=== PATIENT | female | born 1960 | race African-American/Black ===

== ENCOUNTER 2016-11-19 06:59 | Day surgery (SDC) | payer MEDICARE ==
[~2016-11-19] VITALS: Ht 157.5 cm; Wt 81.6 kg
[~2016-11-19 06:59] MED LIST: ASPIRIN EC81 M1 PO; CYCLOBENZAPRINE10 MG PO; DILT-XR240 MG PO; HCTZ25 MG PO; K-DUR20 MEQ PO; LEXAPRO20 MG PO; PREDNISONE5 MG PO; VENTOLIN HFA18 GM INH; VITAMIN D31000 UNI2 PO; ZOCOR20 MG PO
[2016-11-19 08:36] VITALS: BP 134/69; Ht 157.5 cm; Wt 81.6 kg
[2016-11-19 09:18] LABS: CALC OSMOLALITY 287 mosm/kg (275-300); CALCIUM 9.8 mg/dL (8.5-10.1); CARBON DIOXIDE 32.5 mmol/L (21.0-32.0); CHLORIDE - SERUM 105 mmol/L (98-107); CREATININE - SERUM 0.7 mg/dL (0.6-1.3); GLUCOSE 100 mg/dL (74-106); POTASSIUM - SERUM 4.7 mmol/L (3.5-5.1); SODIUM 144 mmol/L (136-145); UREA NITROGEN 14 mg/dL (7-18); eGFR NON AFRICAN AMERICAN > 90 mL/min (90-120)
[2016-11-19 09:41] LABS: HEMATOCRIT 36.1 % (36.0-48.0); HEMOGLOBIN 10.8 g/dL (12-16); MCH 22.5 pg (26.0-34.0); MCHC 29.9 g/dL (31.0-37.0); MCV 75.1 fL (80.0-100.0); MEAN PLATELET VOLUME 10.3 fL (7.4-10.4); RBC 4.81 10x6/uL (4.00-5.40); RDW 17.1 % (11.5-14.5); WBC 5.3 10x3/uL (4.8-10.8)
--- NOTE | 2016-11-19 10:18 | HP ---
PATIENT: ESTEFANI CALDERÓN [facility] MEDICAL RECORD: [id number] ACCOUNT: [id number] LOCATION:[facility] : 60 ADMISSION DATE: 11/19/16 HISTORY AND PHYSICAL EXAMINATION Preoperative History and Physical HISTORY OF PRESENT ILLNESS: Estefani is a 56-year-old female who presented with left eustachian tube dysfunction and serous otitis media. Her symptoms have persisted and she has some inflammatory changes in the nasopharynx, they are atypical as well. She is being admitted for left myringotomy and tube and direct laryngoscopy and biopsy of the nasopharynx. PAST MEDICAL HISTORY: Include hypertension, coronary artery disease and reactive airway disease. PAST SURGICAL HISTORY: Includes . CURRENT MEDICATIONS: Diltiazem, cyclobenzaprine, hydrochlorothiazide, prednisone, meclizine, simvastatin, Ventolin and oxygen. ALLERGIES: No known drug allergies. PHYSICAL EXAMINATION: GENERAL: She is healthy-appearing, developmentally normal. FACE: Normal, symmetric, no lesions. EYES: Sclerae and conjunctivae are normal. EARS: Right ear is normal. Left ear has effusion. NOSE: No mass, polyps or drainage. ORAL CAVITY AND OROPHARYNX: Tongue protrudes in the midline. Palate and pharynx are normal. NECK: No masses, no adenopathy. CHEST: Clear. CARDIOVASCULAR: Regular rate and rhythm. No murmur. EXTREMITIES: Normal. IMPRESSION: Left chronic serous otitis media and possible nasopharyngeal mass. PLAN: Left myringotomy and tube and pharyngolaryngoscopy biopsy of the nasopharynx. TRANSINT:[id number] Voice Confirmation ID: [id number] DOCUMENT ID: [id number] ROHINI HURTADO MD at 1018 CC: [id number] DICTATION DATE: 11/18/16 1436 CISSP: 11/18/16 1454 [facility] [address] [place] [address]
--- NOTE | 2016-11-19 13:01 | NUR ---
1245-TOLERATING JUICE, POPSICLE, AND ICE CREAM WELL-NO NAUSEA. IV DISCONTINUED, CATHETER INTACT, COTTON BALL AND BANDAID APPLIED. DISCHARGE INSTRUCTIONS GIVEN. PT. ESCORTED VIA WHEELCHAIR TO PERSONAL CAR, LEFT WITH PARENTS/FAMILY AT SIDE.
--- NOTE | 2016-11-19 13:58 | NUR ---
1350--IV DC'D, PT UP TO DRESS AT THIS TIME. GUERO TERAN
--- NOTE | 2016-11-19 14:08 | NUR ---
1408--DISCHARGE INSTRUCTIONS GIVEN, PT VERBALIZES UNDERSTANDING. PT OFF UNIT VIA YAMILA. GUERO TERAN
--- NOTE | 2016-12-10 13:59 | OP ---
PATIENT NAME: ESTELITA CALDERÓN MEDICAL RECORD: [id number] :60 [facility] DATE: SURGEON: ROHINI HURTADO MD DATE OF OPERATION: 11/19/2016 PREOPERATIVE DIAGNOSES: Eustachian tube dysfunction, left serous otitis media, possible nasopharyngeal mass. POSTOPERATIVE DIAGNOSES: Eustachian tube dysfunction, left serous otitis media, possible nasopharyngeal mass. PROCEDURES: Direct laryngoscopy and biopsy of the nasopharynx, left myringotomy and tube. SURGEON: Rohini Hurtado MD ANESTHESIA: General orotracheal. BLOOD LOSS: 1 cc. SPECIMENS: Multiple biopsies of the nasopharynx. TUBES: Pavon tube on the left ear. COMPLICATIONS: None. DISPOSITION: Recovery, stable. DESCRIPTION OF PROCEDURE: He was brought to the operating room and placed in supine position, sedated and intubated by anesthesia. The left ear was examined under the microscope. Cerumen was cleaned with a curet. Canal was normal. TM was normal in contour. There was an obvious min effusion with some bubbles. A radial anterior inferior myringotomy was made. Serous fluid was suctioned and a Pavon tube was placed followed by Ciprodex drops and a cotton ball. There was no bleeding. The table was turned 90 degrees. A head drape was applied and she was positioned for laryngoscopy. Using a Kleinsakimanier Yisel. laryngoscope, the hypopharynx, vallecula, base of tongue, pharyngeal gary, piriforms, and larynx were all examined. She has difficult exposure, but there were no lesions or masses visualized, then the laryngoscope was removed. A Abbi-Sammy mouth gag was inserted and elevated on a towel on her chest. The palate was examined and palpated. It was normal. A red rubber catheter was placed through the right side of the nose into the pharynx and grasped with tonsil clamp to retract the soft palate. Using a mirror, the nasopharynx was examined. Basically, it looked like the choanae was normal. Eustachian tube ____ normal, but there was basically high in the adenoid more left than right, swollen, reddish, inflamed adenoid tissue. I could not say there was really a mass, but certainly not normal for an adult. Using a 4-mm straight biting cup forceps through the nose while visualizing with a mirror, multiple biopsies were taken of the superior nasopharynx, right and left. Several biopsies were taken, which were sent for specimen. Suction cautery on a setting of 20 was used to stop any bleeding. Nares were examined, it was normal. No bleeding, clean and dry. After that, the red rubber catheter was let down and removed. The nose was irrigated and pharynx was suctioned. With the field clean and dry, the Abbi-Sammy mouth gag was let down and removed. She was awakened, extubated, and transported to recovery in good condition. No complications. OPERATIVE REPORT [id number] ESTELITA CALDERÓN TRANSINT:[id number] Voice Confirmation ID: [id number] DOCUMENT ID: [id number] ROHINI HURTADO MD at 1359 CC: [id number] DICTATION DATE: 11/19/16 1152 CLIENT RESOLUTION SPECIALIST: 11/19/16 1359 [facility] 11/19/[address] [address]
== END 2016-11-19 14:08 | disposition home or self-care (01) ==
LOC: D.OPS 06:59 → D.PAN 09:30 → D.OPS 09:30
PROVIDERS: Anesthesiology
DX: H66.92 Otitis media, unspecified, left ear (principal); I10 Essential (primary) hypertension; J44.9 Chronic obstructive pulmonary disease, unspecified; G47.30 Sleep apnea, unspecified; E66.01 Morbid (severe) obesity due to excess calories; Z68.33 Body mass index [BMI] 33.0-33.9, adult; H69.92 Unspecified Eustachian tube disorder, left ear